=== PATIENT | male | born 1945 | race Caucasian/White ===

== ENCOUNTER 2020-10-27 22:50 | Emergency (ER) | payer MEDICARE ==
[2020-10-28] MEDS ORDERED: LODINE CAP 300300 MG PO (01:39)
[2020-10-28] MEDS ORDERED: NORFLEX 100 MG100 MG PO (01:39)
== END 2020-10-28 02:25 | disposition home or self-care (01) ==
LOC: ER1 22:50
DX: S43.401A Unspecified sprain of right shoulder joint, initial encounter (principal); X58.XXXA Exposure to other specified factors, initial encounter; Y92.009 Unspecified place in unspecified non-institutional (private) residence as the place of occurrence of the external cause
CPT/HCPCS: 73030; 73060; 99283